=== PATIENT | female | born 1960 | race Two or more races ===

== ENCOUNTER 2023-11-10 10:49 | Emergency (ER) | payer SELFPAY ==
[2023-11-10 10:58] VITALS: BP 141/72
[2023-11-10 11:40] LABS: % Basophils 0.5 % (0-2); % Eosinophils 0.8 % (0-6); % Immature Granulocytes 0.3 % (0-0.5); % Lymphocytes 23.7 % (20.5-51.1); % Monocytes 5.6 % (1.7-9.3); % Neutrophils 69.1 % (42.2-75.2); Absolute Eosinophils 0.1 10^3/uL (0-0.7); Absolute Lymphocytes 1.8 10^3/uL (1.2-3.4); Absolute Monocytes 0.4 10^3/uL (0.1-0.6); Absolute Neutrophils 5.1 10^3/uL (1.4-6.5); Hematocrit 41.1 % (37.0-47.0); Hemoglobin 13.8 g/dL (12.0-16.0); Mean Corp Hgb Conc. 33.6 g/dL (33.0-37.0); Mean Corpuscular Hgb 30.8 pg (27.0-31.0); Mean Corpuscular Volume 91.7 fL (81.0-99.0); Mean Platelet Volume 8.9 fL (7.4-10.4); Nucleated Red Blood Cells % 0 %; Platelet Count 257 10^3/uL (130-400); Red Blood Cell Count 4.48 10^6/uL (4.20-5.40); Red Cell Dist. Width 12.9 % (11.5-14.5); White Blood Cell Count 7.4 10^3/uL (4.8-10.8)
[2023-11-10 11:58] LABS: ALT (SGPT) 17 U/L (0-35); AST (SGOT) 27 U/L (14-36); Albumin 4.3 g/dl (3.5-5.0); Alkaline Phosphatase 67 U/L (38-126); Blood Urea Nitrogen 12 mg/dl (7-17); Calcium 9.5 mg/dl (8.4-10.2); Carbon Dioxide 29 mmol/L (22-30); Chloride 103 mmol/L (98-107); Glucose 117 mg/dl (70-99); Potassium 3.8 mmol/L (3.5-5.1); Sodium 138 mmol/L (135-145); Total Bilirubin 0.5 mg/dl (0.2-1.3); Total Protein 6.9 g/dl (6.3-8.2); eGFR > 60.00
--- NOTE | 2023-11-10 12:00 | ED.SKININJ ---
HPI-Injury
General
Chief Complaint: Blood and Body Fluid Exposure
Source: patient
Exam Limitations: none
Time Seen by Provider: 11/10/23 11:20
Nursing documentation reviewed up to this point in time: agreed with
Travel History
Have you had any contact with someone who has COVID-19?: No
Do you have any symptoms of coronavirus? Fever > 100 degrees, chills, cough, shortness of breath, sore throat, loss of taste or smell, muscle aches, or headache?: No
History of Present Illness-Injury
Is this injury a work related problem?: Yes
Is pt an associate of [facility]?: Yes
Initial Injury comments:
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 With gloved hands
she started picking them up and felt a sharp in the palm of her right hand and noted blood. Assume needle stick.
Past History
Past History
ED Past Medical History: GERD and Other (Constipation)
ED Past Surgical History: Orthopedic
Social History
Tobacco: Non-smoker
Alcohol: None
Personal:
Living: alone
Employment: Employed
Family History
Family History: Other
Review of Systems
Review of Systems
Allergies reviewed?: Yes
All Other Systems: ROS reviewed and negative except as documented in HPI and ROS
Skin: Reports other (puncture wound palm right hand)
Phy Exam
General Physical Exam
General Presentation: well appearing and no apparent distress
General Skin: warm
General Habitus: normal
General Mental: alert
Skin Exam
Skin Exam: normal color, warm/dry and other (tiny puncture would palm of right hand over head of metacarpal)
Psychiatric Exam
Psychiatric Exam: normal mood/affect
Course
Orders/Labs/Results
Orders:
Orders
11/10/23 00:00
Emtricitabine/Tenofovir [Truvada Tablet] 1 tablet PO DAILY
Raltegravir Potassium [Isentress] 400 mg PO BID
11/10/23 11:17
Pt has had a significant HIV exposure? Routine
HIV Exposure is significant?: Yes
11/10/23 11:24
Complete Blood Count/With Diff Urgent
Comprehensive Metabolic Panel Urgent
HIV Combo Urgent
Hepatitis B Surface Antibody Urgent
Hepatitis B Surface Antigen Urgent
Hepatitis C Antibody Urgent
11/10/23 12:05
Tetanus/Diphth/Acelpertussis [Adacel] 0.5 ml IM .ONCE ONE
11/10/23 12:09
Pt has had a significant HIV exposure? Routine
HIV Exposure is significant?: Yes
Emtricitabine/Tenofovir [Truvada Tablet] 1 tablet PO NOW STA
Raltegravir Potassium [Isentress] 400 mg PO NOW STA
Abnormal Lab Results
11/10/23
11:24
Glucose 117 H mg/dl
(70-99)
11/10/23 11:24
11/10/23 11:24
Vital Signs
Initial and Last Documented VS:
Initial Vital Signs
Temp Pulse Resp BP Pulse Ox
98.2 F 79 18 141/72 100
11/10/23 10:58 11/10/23 10:58 11/10/23 10:58 11/10/23 10:58 11/10/23 10:58
Last Documented Vital Signs
Temp Pulse Resp BP Pulse Ox
98.2 F 79 18 141/72 100
11/10/23 10:58 11/10/23 10:58 11/10/23 10:58 11/10/23 10:58 11/10/23 10:58
MDM/Problems Addressed
MDM/Problems Addressed:
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 With gloved hands
she started picking them up and felt a sharp in the palm of her right hand and noted blood. Assume needle stick.
[facility] is requesting that we give the patient 5 days worth of PEP medication and she will follow-up with them on Monday. Pharmacist Sivan will obtain the medication and give it to patient.
*Critical Care Note
Total Time (30-74mins, 75-104mins- exclusive of procedures): Not Applicable
ED Attending Note
-
Portions of this chart may have been created with voice recognition software.� Occasional wrong word or��sound alike� substitutions may have occurred due to the inherent limitations of voice recognition software.
Discharge Plan
Departure
Patient Disposition: Home (Routine Discharge)
Date of Disposition: 11/10/23
Time of Disposition: 12:32
Patient with high blood pressure during this ER visit?: No
Condition: Good
Discharge Problem:
Needle stick injury of hand
Instructions: Blood or body fluid exposure, Puncture Wound
Prescriptions:
New
emtricitabine-tenofovir (TDF) [Truvada] 200-300 mg tablet
1 tab PO DAILY Qty: 5 0RF
Isentress 400 mg tablet
400 mg PO BID Qty: 10 0RF
No Action
No Meds [No Current Medications]
0
hydrocodone-acetaminophen [Vicodin] 1 EACH tablet
1 tab PO Q6HPRN PRN (Reason: severe pain) Qty: 10 0RF
Referrals:
Occupational, Health [Other] - Follow up in 2-3 days
Sarwat Viera MD [Family Provider] -
Stand Alone Forms: Bl/Fluid Consent/Declination
Activity Restrictions/Additional Instructions:
As we discussed, take the prescriptions to [facility] today.
Interventions
Interventions:
*Risk Screen - Suicide Last Done: 11/10/23 13:27
*General Assessment Last Done: 11/10/23 13:27
*Neglect/Abuse Screening Last Done: 11/10/23 13:27
ED- Fall Risk Assessment Last Done: 11/10/23 13:27
*ED COVID-19 Vaccine History Last Done: 11/10/23 11:08
*Nursing Disposition Last Done: 11/10/23 13:27
ED-EENT Assessment Last Done: 11/10/23 11:18
ED-Skin Assessment Last Done: 11/10/23 11:18
Discharge Date and Time
Discharge Date/Time: 11/10/23 13:29
Print Language: MACEDONIAN
[2023-11-10 12:28] LABS: Hepatitis B Surface Antigen Negative (Negative)
[2023-11-10 12:45] LABS: Hepatitis B Surface Antibody Positive; Hepatitis C Antibody Negative (Negative)
[2023-11-10] MEDS: TRUVADA TABLET 1 TABLET PO (12:56)
[2023-11-10] MEDS: ISENTRESS 400 MG PO (12:56)
[2023-11-10] MEDS: ADACEL 0.5 ML IM (12:59)
[2023-11-10 13:40] LABS: HIV Combo Negative (Negative)
== END 2023-11-10 13:29 | disposition home or self-care (01) ==
LOC: EMR 10:49
PROVIDERS: Registered Nurse; EMERGENCY PHYSICIAN Emergency Medicine; FAMILY PHYSICIAN Internal Medicine Geriatric Medicine
DX: Z77.21 Contact with and (suspected) exposure to potentially hazardous body fluids (principal); S61.431A Puncture wound without foreign body of right hand, initial encounter; W46.0XXA Contact with hypodermic needle, initial encounter; Y99.0 Civilian activity done for income or pay; Z23 Encounter for immunization
CPT/HCPCS: 99283; 90471; 80053; 85025; 86706; 86803; 87340; 87389; 90715

== ENCOUNTER → 2024-01-08 14:24 | Outpatient (REF) | payer OTHER, SELFPAY ==
[2024-01-08 17:31] LABS: ALT (SGPT) 14 U/L (0-35); AST (SGOT) 26 U/L (14-36); Albumin 4.2 g/dl (3.5-5.0); Alkaline Phosphatase 58 U/L (38-126); Direct Bilirubin 0.1 mg/dl (0.0-0.4); Total Bilirubin 0.3 mg/dl (0.2-1.3); Total Protein 6.5 g/dl (6.3-8.2)
[2024-01-08 20:55] LABS: Hepatitis C Antibody Negative (Negative)
[2024-01-09 12:31] LABS: HIV Combo Negative (Negative)
== END ==
LOC: OHS 14:24
PROVIDERS: ATTENDING PHYSICIAN Nurse Practitioner Family
DX: Z23 Encounter for immunization (principal)
CPT/HCPCS: 36415; 80076; 86803; 87389

== ENCOUNTER → 2024-02-26 06:23 | Outpatient (REF) | payer BC, SELFPAY ==
[2024-02-26 07:35] LABS: % Basophils 0.7 % (0-2); % Immature Granulocytes 0.4 % (0-0.5); % Lymphocytes 21.9 % (20.5-51.1); % Monocytes 5.2 % (1.7-9.3); % Neutrophils 69.8 % (42.2-75.2); Absolute Eosinophils 0.1 10^3/uL (0-0.7); Absolute Lymphocytes 1.2 10^3/uL (1.2-3.4); Absolute Monocytes 0.3 10^3/uL (0.1-0.6); Absolute Neutrophils 3.8 10^3/uL (1.4-6.5); Hematocrit 41.6 % (37.0-47.0); Hemoglobin 14.2 g/dL (12.0-16.0); Mean Corp Hgb Conc. 34.1 g/dL (33.0-37.0); Mean Corpuscular Hgb 31.7 pg (27.0-31.0); Mean Corpuscular Volume 92.9 fL (81.0-99.0); Mean Platelet Volume 9.4 fL (7.4-10.4); Nucleated Red Blood Cells % 0 %; Platelet Count 269 10^3/uL (130-400); Red Blood Cell Count 4.48 10^6/uL (4.20-5.40); Red Cell Dist. Width 12.6 % (11.5-14.5); White Blood Cell Count 5.4 10^3/uL (4.8-10.8)
[2024-02-26 08:03] LABS: ALT (SGPT) 13 U/L (0-35); AST (SGOT) 27 U/L (14-36); Albumin 4.5 g/dl (3.5-5.0); Alkaline Phosphatase 61 U/L (38-126); Blood Urea Nitrogen 10 mg/dl (7-17); Calcium 9.7 mg/dl (8.4-10.2); Carbon Dioxide 29 mmol/L (22-30); Chloride 103 mmol/L (98-107); Glucose 91 mg/dl (70-99); HDL Cholesterol 90 mg/dl; LDL Cholesterol, Calculated 100 mg/dl; Potassium 4.5 mmol/L (3.5-5.1); Sodium 142 mmol/L (135-145); Total Bilirubin 0.4 mg/dl (0.2-1.3); Total Cholesterol 201 mg/dl (50-199); Total Protein 6.9 g/dl (6.3-8.2); Triglyceride 57 mg/dl (10-149); Very Low Density Lipoprotein 11 mg/dl (0-30); eGFR > 60.00
[2024-02-26 08:17] LABS: Free T4 1.12 ng/dl (0.78-2.19); Vitamin D, 25-OH*** 74.6 ng/mL (30-80)
[2024-02-27 20:32] LABS: IgE 36 kU/L (<=214)
== END ==
LOC: REG 06:23
PROVIDERS: ATTENDING PHYSICIAN Internal Medicine Geriatric Medicine
DX: Z00.00 Encounter for general adult medical examination without abnormal findings (principal); E78.2 Mixed hyperlipidemia; G47.30 Sleep apnea, unspecified; E55.9 Vitamin D deficiency, unspecified; E05.90 Thyrotoxicosis, unspecified without thyrotoxic crisis or storm; Z13.89 Encounter for screening for other disorder; Z12.31 Encounter for screening mammogram for malignant neoplasm of breast
CPT/HCPCS: 36415; 80053; 80061; 82306; 82785; 84439; 84443; 85025

== ENCOUNTER → 2024-05-10 12:04 | Outpatient (REF) | payer OTHER, SELFPAY ==
[2024-05-10 15:45] LABS: ALT (SGPT) 16 U/L (0-35); AST (SGOT) 26 U/L (14-36); Albumin 4.6 g/dl (3.5-5.0); Alkaline Phosphatase 51 U/L (38-126); Total Bilirubin 0.3 mg/dl (0.2-1.3)
[2024-05-10 16:32] LABS: HIV Combo Negative (Negative)
[2024-05-10 16:33] LABS: Hepatitis C Antibody Negative (Negative)
[2024-05-12 19:45] LABS: HCV Quant by NAAT IU/mL Not Detected; HCV Quant by NAAT Interp Not Detected (Not Detected); HCV Quant by NAAT Log IU/mL Not Detected log IU/mL
== END ==
LOC: OHS 12:04
PROVIDERS: ATTENDING PHYSICIAN Nurse Practitioner Family
DX: Z23 Encounter for immunization (principal)
CPT/HCPCS: 36415; 80076; 86803; 87389; 87522

== ENCOUNTER → 2024-07-15 09:19 | Outpatient (REF) | payer OTHER, SELFPAY | LOC: OHS 09:19 | PROVIDERS: ATTENDING PHYSICIAN Nurse Practitioner Family | DX: M54.50 Low back pain, unspecified (principal) | CPT/HCPCS: 72110 ==

== ENCOUNTER → 2024-07-30 14:43 | Outpatient (REF) | payer BC, SELFPAY | LOC: HWWDC 14:43 | PROVIDERS: ATTENDING PHYSICIAN Internal Medicine Geriatric Medicine | DX: Z12.31 Encounter for screening mammogram for malignant neoplasm of breast (principal) | CPT/HCPCS: 77063; 77067 ==

== ENCOUNTER → 2024-12-30 16:27 | Outpatient (REF) | payer BC, SELFPAY | LOC: CPAP 16:27 | PROVIDERS: ATTENDING PHYSICIAN Student in an Organized Health Care Education/Training Program | DX: Z01.419 Encounter for gynecological examination (general) (routine) without abnormal findings (principal); Z11.51 Encounter for screening for human papillomavirus (HPV) | CPT/HCPCS: 87624 ==

== ENCOUNTER → 2025-02-25 06:21 | Outpatient (REF) | payer BC, SELFPAY ==
[2025-02-25 07:31] LABS: Hematocrit 38.7 % (37.0-47.0); Hemoglobin 13.3 g/dL (12.0-16.0); Mean Corp Hgb Conc. 34.4 g/dL (33.0-37.0); Mean Corpuscular Volume 92.1 fL (81.0-99.0); Nucleated Red Blood Cells % 0 %; Platelet Count 259 10^3/uL (130-400); Red Cell Dist. Width 13.0 % (11.5-14.5)
[2025-02-25 08:04] LABS: Urine Character Slightly Cloudy (Clear)
[2025-02-25 08:14] LABS: ALT (SGPT) 18 U/L (0-35); AST (SGOT) 26 U/L (14-36); Alkaline Phosphatase 55 U/L (38-126); Blood Urea Nitrogen 12 mg/dl (7-17); Calcium 9.5 mg/dl (8.4-10.2); Carbon Dioxide 27 mmol/L (22-30); Chloride 107 mmol/L (98-107); Glucose 91 mg/dl (70-99); HDL Cholesterol 90 mg/dl; LDL Cholesterol, Calculated 112 mg/dl; Potassium 4.6 mmol/L (3.5-5.1); Sodium 140 mmol/L (135-145); Total Protein 6.9 g/dl (6.3-8.2); Very Low Density Lipoprotein 14 mg/dl (0-30); eGFR > 60.00
[2025-02-25 08:21] LABS: Vitamin D, 25-OH*** 68.2 ng/mL (30-80)
[2025-02-25 08:35] LABS: TSH 0.50 uIU/ml (0.47-4.68)
[2025-02-25 08:37] LABS: Albumin 4.3 g/dl (3.5-5.0)
[2025-02-25 09:17] LABS: Urine White Cell 16-20 /HPF (0-5)
== END ==
LOC: REG 06:21
PROVIDERS: ATTENDING PHYSICIAN Internal Medicine Geriatric Medicine
DX: E78.2 Mixed hyperlipidemia (principal); G47.30 Sleep apnea, unspecified; E55.9 Vitamin D deficiency, unspecified; E05.90 Thyrotoxicosis, unspecified without thyrotoxic crisis or storm; Z13.89 Encounter for screening for other disorder; Z00.00 Encounter for general adult medical examination without abnormal findings
CPT/HCPCS: 36415; 80053; 80061; 81003; 81015; 82306; 84439; 84443; 85025

== ENCOUNTER → 2025-02-28 06:22 | Outpatient (REF) | payer BC, SELFPAY ==
[2025-02-28 08:00] LABS: Urine Character Clear (Clear)
[2025-02-28 08:14] LABS: Urine Squamous Cell 0-2 /LPF (Few); Urine White Cell 0-2 /HPF (0-5)
== END ==
LOC: REG 06:22
PROVIDERS: ATTENDING PHYSICIAN Internal Medicine Geriatric Medicine
DX: R31.9 Hematuria, unspecified (principal)
CPT/HCPCS: 81003; 81015

== ENCOUNTER → 2025-03-06 14:35 | Outpatient (REF) | payer BC, SELFPAY | LOC: HWRAD 14:35 | PROVIDERS: ATTENDING PHYSICIAN Internal Medicine Geriatric Medicine | DX: R31.9 Hematuria, unspecified (principal) | CPT/HCPCS: 76770 ==

== ENCOUNTER → 2025-03-13 13:20 | Outpatient (REF) | payer BC, SELFPAY | LOC: CLAB 13:20 | PROVIDERS: ATTENDING PHYSICIAN Obstetrics & Gynecology | DX: R31.9 Hematuria, unspecified (principal) | CPT/HCPCS: 87086 ==